=== PATIENT | male | born 1955 | race Caucasian/White ===

== ENCOUNTER 2019-02-05 07:35 | Day surgery (SDC) | payer MEDICARE ==
[~2019-02-05] VITALS: Ht 180.3 cm; Wt 112.6 kg
[2019-02-05] MEDS ORDERED: TAMS.4ER (07:56)
[2019-02-05] MEDS ORDERED: LIVALO4 MG (07:57)
[2019-02-05] MEDS ORDERED: HEARTBURN RELI150 M1 (07:57)
[2019-02-05] MEDS ORDERED: Inderal 20 mg T20 MG (07:57)
--- NOTE | 2019-02-05 08:54 | NUR ---
02/05/19 0854 Chantal Gil USED FOR IRRIGATION PER DR AGUIRRE
== END 2019-02-05 09:36 | disposition home or self-care (01) ==
LOC: ORSCSDS 07:35
PROVIDERS: Internal Medicine Gastroenterology
PROC: 0DBK8ZX Excision of Ascending Colon, Via Natural or Artificial Opening Endoscopic, Diagnostic (ICD-10-PCS; principal; 2019-02-05 08:45)
DX: Z12.11 Encounter for screening for malignant neoplasm of colon (principal); D12.2 Benign neoplasm of ascending colon; K64.1 Second degree hemorrhoids; I10 Essential (primary) hypertension; Z87.891 Personal history of nicotine dependence; Z79.899 Other long term (current) drug therapy
CPT/HCPCS: 88305; J1980; J2405; J2704; J7120